=== PATIENT | male | born 1990 | race Caucasian/White ===

== ENCOUNTER → 2017-02-06 | Outpatient (CLI) | payer OTHER ==
[~2017-02-06] MED LIST: DOCU-30 PO; OXYC-302 PO; TRAM50TA2 PO
== END | disposition home or self-care (01) ==
LOC: RAD 13:46
PROVIDERS: ATTEND Urology
DX: N19 Unspecified kidney failure (principal); D41.02 Neoplasm of uncertain behavior of left kidney; Z85.528 Personal history of other malignant neoplasm of kidney
CPT/HCPCS: 71010; 76770

== ENCOUNTER → 2017-06-25 | Outpatient (CLI) | payer OTHER | END | disposition home or self-care (01) | LOC: CFH 14:14 | PROVIDERS: ATTEND Urology | DX: C64.2 Malignant neoplasm of left kidney, except renal pelvis (principal); Z90.5 Acquired absence of kidney | CPT/HCPCS: 71020; 76770 ==